=== PATIENT | female | born 1985 | race African-American/Black ===

== ENCOUNTER 2016-12-16 01:52 | Emergency (ER) | payer BC ==
[~2016-12-16] VITALS: Ht 165.1 cm; Wt 83.9 kg
[~2016-12-16 01:52] MED LIST: CIPRO500 MG PO; IBUPROFEN600 MG PO; METRONIDAZOLE500 MG PO; NKM; NORCO 5-325 TA1 EACH PO
[2016-12-16 02:14] VITALS: BP 117/85
[2016-12-16] MEDS ORDERED: IBUPROFEN800 MG ORAL (02:18)
[2016-12-16] MEDS ORDERED: PSEUDOEPHEDRINE30 MG PO (02:18)
--- NOTE | 2016-12-16 02:29 | Emergency Room Report ---
History of Present Illness General Chief Complaint: Sore Throat Source: Patient Present Illness HPI [id number] with 2 days sore throat, nasal congestion, dry cough. No fever/.chills, sick contacts. Denies chest pain, SOB, wheezing, smoking, history of asthma. Just got back from road trip to [place]. Allergies: Coded Allergies: Dust (Verified Allergy, Unknown, 12/16/16) Uncoded Allergies: CATS (Allergy, Unknown, 12/16/16) Patient History Past Medical History: none Past Surgical History: none Pertinent Family History: none Social History: Denies: alcohol use, drug use, smoking Last Menstrual Period: Unknown Now: No Immunizations: UTD Reviewed Nursing Documentation: PMH: Agreed, PSxH: Agreed Nursing Documentation-PMH Past Medical History: No Stated History Review of Systems All Other Systems: negative except mentioned in HPI Physical Exam Vital Signs Date Time Temp Pulse Resp B/P Pulse Ox O2 Delivery O2 Flow Rate FiO2 12/16/16 01:57 98.4 82 16 117/85 99 Room Air Sp02 EP Interpretation: reviewed, normal General Appearance: normal inspection, well appearing, no apparent distress, alert, non-toxic Head: normocephalic, atraumatic Eyes: bilateral eye EOMI, bilateral eye PERRL ENT: normal ENT inspection, hearing grossly normal, normal pharynx, no angioedema, normal voice, TMs + canals normal, uvula midline, moist mucus membranes Neck: normal inspection, full range of motion, supple, no bony tend Respiratory: normal inspection, lungs clear, normal breath sounds, no respiratory distress, no retraction, no wheezing Cardiovascular #1: regular rate, rhythm, no edema Gastrointestinal: normal inspection, normal bowel sounds, non tender, soft, no guarding, no hernia Genitourinary: no CVA tenderness Musculoskeletal: normal inspection, back normal, normal range of motion, Kennedy' s Sign negative Neurologic: normal inspection, alert, oriented x3, responsive, neck pinner III-XII nml as tested, motor strength/tone normal, speech normal Psychiatric: normal inspection, judgement/insight normal, mood/affect normal Skin: normal inspection, normal color, no rash Lymphatic: normal inspection Medical Decision Making Diagnostic Impression: Primary Impression: Sore throat ER Course Likely viral pharyngitis. Afebrile. No strep in posterior oropharynx. Lungs CTAB With combination of cough, sinus congestion and sore throat, likely viral IM Toradol and PO decadron given in ED with improvement Rx Ibuprofen DC home with PMD followup Last Vital Signs Date Time Temp Pulse Resp B/P Pulse Ox O2 Delivery O2 Flow Rate FiO2 12/16/16 02:14 98.4 82 16 117/85 99 Room Air Status: improved Disposition: HOME, SELF-CARE Condition: Improved Scripts Ibuprofen* (MOTRIN*) 800 Mg Tablet 800 MG ORAL THREE TIMES A DAY for sore throat, #30 TAB 0 Refills Prov: DULCE MARIA WEST M.D. 12/16/16 Pseudoephedrine Hcl* (SUDAFED*) 30 Mg Tablet 30 MG PO BID for 3 Days, #10 TAB Prov: DULCE MARIA WEST M.D. 12/16/16 Referrals: NOT CHOSEN IPA/,REFERRING (PCP) Patient Instructions: Pharyngitis, [id number], Sore Throat Additional Instructions: - Take sudafed up to twice a day but not at night for nasal congestion - Take high-dose ibuprofen up to 3x a day with food for sore throat - Drink plenty of liquids - Follow up with your doctor in 2-3 days DULCE MARIA WEST M.D. Dec 16, 2016 02:29
[2016-12-16] MEDS ORDERED: Ketorolac 60mg Inj IM ONE (02:30)
[2016-12-16 02:40] VITALS: BP 117/85
== END 2016-12-16 02:40 | disposition home or self-care (01) ==
LOC: EMR 02:05
DX: J02.9 Acute pharyngitis, unspecified (principal)
CPT/HCPCS: 96372; 99284; J8540